=== PATIENT | female | born 1980 | race Caucasian/White ===

== ENCOUNTER → 2024-09-25 11:05 | Outpatient (REF) | payer OTHER, SELFPAY ==
[2024-09-25 13:41] LABS: Rubella Negative
== END ==
LOC: OHS 11:05
PROVIDERS: ATTENDING PHYSICIAN Nurse Practitioner Family
DX: Z23 Encounter for immunization (principal)
CPT/HCPCS: 36415; 86735; 86762; 86765; 86787